=== PATIENT | female | born 1930 | race Caucasian/White ===

== ENCOUNTER 2017-07-28 11:56 | Inpatient (IN) | END 2017-07-29 16:23 | disposition home or self-care (01) | DRG 392 | DX: R11.2 Nausea with vomiting, unspecified (principal); E87.2 Acidosis; I95.9 Hypotension, unspecified; E86.0 Dehydration; E11.65 Type 2 diabetes mellitus with hyperglycemia; K92.1 Melena; R19.7 Diarrhea, unspecified ==